=== PATIENT | female | born 1955 | race Caucasian/White ===

== ENCOUNTER 2016-12-25 09:22 | Emergency (ER) | payer BC ==
[~2016-12-25] VITALS: Ht 154.9 cm; Wt 84.0 kg
[2016-12-25 09:31] VITALS: TEMP 36.7; Ht 154.9 cm; Wt 84.0 kg
[2016-12-25] MEDS ORDERED: ASPIRIN 81 MG CHEW PO STA (09:43)
--- NOTE | 2016-12-25 09:47 | EMERGENCY ROOM VISIT NOTE ---
History Report prepared by Harjinder: Elsi Ang Under the Supervision of: Dr. Shayy Carrizales M.D. First contact with patient: 09:30 Chief Complaint: CARDIAC ASSESSMENT Stated Complaint: TIGHTNESS IN CHEST History of Present Illness The patient is a 61 year old female who presents to the Emergency Room with complaints of intermittent left sided chest discomfort that she describes as pinching since last evening. She was at rest watching TV when her pain began. She notes that she has had small tinges of the pain in the past but it has never been this persistent. She notes that her pain is more prominent when she squeezes her left hand. She does not have increased pain with deep breaths. She does note that she has some pain just below her left knee that is intermittent. Denies shortness of breath, leg swelling, or other complaints. Past medical history includes hypertension. She does not have a history of heart disease or blood clots. She had a stress test about 15 years ago. The patient's father at age 53 from heart disease. The patient is not a smoker. She does not take hormone therapy. Denies recent long trips or surgeries. She does not take aspirin. Source of History: patient Onset: last night Position: chest (left) Quality: other (pinching) Timing: intermittent Associated Symptoms: No SOB Note: Other symptoms: left knee pain Review of Systems See HPI for pertinent positives & negatives. A total of 10 systems reviewed and were otherwise negative. Past Medical & Surgical Medical Problems: (1) Hypercholesterolemia (2) Hypertension Family History Heart disease Social History Smoking Status: Never Smoker Marital Status: Occupation Status: employed Current/Historical Medications Scheduled Allopurinol (Zyloprim), Unknown Dose PO DAILY Atorvastatin (Lipitor), Unknown Dose PO DAILY Cholecalciferol (Vitamin D3), Unknown Dose PO DAILY Coenzyme Q10 (Ubidecarenone) (Co Q10), Unknown Dose PO DAILY Indapamide (Lozol), 1.25 MG PO DAILY Allergies Uncoded Allergies: SULFA (Allergy, Unknown, 01/02/05) Physical Exam Vital Signs Date Time Temp Pulse Resp B/P Pulse Ox O2 Delivery O2 Flow Rate FiO2 12/25/16 15:08 100 16 134/80 96 12/25/16 14:43 100 16 134/80 96 Room Air 12/25/16 13:04 78 12/25/16 12:16 74 147/90 12/25/16 11:19 75 16 156/100 96 Room Air 12/25/16 09:32 97 Room Air 12/25/16 09:32 86 12/25/16 09:31 36.7 87 17 162/97 95 Room Air Physical Exam Vital signs reviewed. General: Well-appearing 61 year old female, in no significant distress, obese. HEENT: No scleral icterus, PERRLA, neck supple. Atraumatic. Cardiovascular: Regular rate and rhythm, no extra sounds. Pulmonary: Clear to auscultation bilaterally, normal work of breathing. Abdomen: Soft, nontender, nondistended, positive bowel sounds. Musculoskeletal: Atraumatic, no peripheral edema. Neurologic: Patient awake alert and oriented x 3, full strength in all 4 extremities. Cranial nerves 2 through 12 grossly intact. Skin: Warm, dry, no rash Medical Decision & Procedures ER Provider Diagnostic Interpretation: Radiology results as stated below per my review and radiologist interpretation: CHEST ONE VIEW PORTABLE CLINICAL HISTORY: chest pain dyspnea COMPARISON STUDY: No previous studies for comparison. FINDINGS: The bones soft tissues and hemidiaphragms are normal. The cardiomediastinal silhouette is normal. The lungs are clear. The pulmonary vasculature is normal. IMPRESSION: Negative chest. Electronically signed by: Laith Strong M.D. 12/25/2016 10:05 AM Dictated Date/Time: 12/25/2016 10:05 AM Laboratory Results 12/25/16 09:40 Red Blood Count 4.61, Mean Corpuscular Volume 86.6, Mean Corpuscular Hemoglobin 31.0, Mean Corpuscular Hemoglobin Concent 35.8, Mean Platelet Volume 11.2, Neutrophils (%) (Auto) 74.6, Lymphocytes (%) (Auto) 19.4, Monocytes (%) (Auto) 4.1, Eosinophils (%) (Auto) 1.3, Basophils (%) (Auto) 0.2, Neutrophils # (Auto) 4.05, Lymphocytes # (Auto) 1.05, Monocytes # (Auto) 0.22, Eosinophils # (Auto) 0.07, Basophils # (Auto) 0.01 12/25/16 09:40 Test 12/25/16 09:40 12/25/16 09:51 12/25/16 11:28 White Blood Count 5.42 K/uL (4.8-10.8) Red Blood Count 4.61 M/uL (4.2-5.4) Hemoglobin 14.3 g/dL (12.0-16.0) Hematocrit 39.9 % (37-47) Mean Corpuscular Volume 86.6 fL (80-100) Mean Corpuscular Hemoglobin 31.0 pg (25-34) Mean Corpuscular Hemoglobin Concent 35.8 g/dl (32-36) Platelet Count 199 K/uL (130-400) Mean Platelet Volume 11.2 fL (7.4-10.4) Neutrophils (%) (Auto) 74.6 % Lymphocytes (%) (Auto) 19.4 % Monocytes (%) (Auto) 4.1 % Eosinophils (%) (Auto) 1.3 % Basophils (%) (Auto) 0.2 % Neutrophils # (Auto) 4.05 K/uL (1.4-6.5) Lymphocytes # (Auto) 1.05 K/uL (1.2-3.4) Monocytes # (Auto) 0.22 K/uL (0.11-0.59) Eosinophils # (Auto) 0.07 K/uL (0-0.5) Basophils # (Auto) 0.01 K/uL (0-0.2) RDW Standard Deviation 41.5 fL (36.4-46.3) RDW Coefficient of Variation 13.1 % (11.5-14.5) Immature Granulocyte % (Auto) 0.4 % Immature Granulocyte # (Auto) 0.02 K/uL (0.00-0.02) Prothrombin Time 10.8 SECONDS (9.0-12.0) Prothromb Time International Ratio 1.0 (0.9-1.1) Activated Partial Thromboplast Time 26.1 SECONDS (21.0-31.0) Partial Thromboplastin Ratio 1.0 Anion Gap 12.0 mmol/L (3-11) Est Creatinine Clear Calc Drug Dose 62.0 ml/min Estimated GFR () 75.0 Estimated GFR (Non- 64.7 BUN/Creatinine Ratio 14.0 (10-20) Calcium Level 9.3 mg/dl (8.5-10.1) Magnesium Level 1.7 mg/dl (1.8-2.4) Total Bilirubin 0.6 mg/dl (0.2-1) Direct Bilirubin 0.1 mg/dl (0-0.2) Aspartate Amino Transf (AST/SGOT) 13 U/L (15-37) Alanine Aminotransferase (ALT/SGPT) 29 U/L (12-78) Alkaline Phosphatase 83 U/L (45-117) Total Creatine Kinase 92 U/L (26-192) Creatine Kinase MB 1.5 ng/ml (0.5-3.6) Creatine Kinase MB Ratio 1.6 (0-3.0) Total Protein 7.7 gm/dl (6.4-8.2) Albumin 4.1 gm/dl (3.4-5.0) Bedside D-Dimer 90 ng/mlFEU (0-450) Bedside Troponin I 0.000 ng/ml (0-0.045) Laboratory results per my review. Medications Administered Medications (Trade) Dose Ordered Sig/Anum Route Start Time Stop Time Status Last Admin Dose Admin Aspirin (Aspirin Chew) 324 mg NOW STAT PO 12/25/16 09:43 12/25/16 09:46 DC 12/25/16 09:52 324 MG ECG Indication: chest pain Rate (beats per minute): 85 Rhythm: normal sinus Findings: Q waves (Anterior), no acute ischemic change, no ectopy, other ( subtle ST depression laterally) Comparison ECG Date: 02/08/16 Change: no significant change ED Course 0942: The patient was evaluated in room A9. A complete history and physical examination was performed. 0943: Ordered Aspirin 324 mg PO. 1220: I discussed the case with Dr. Guerrero- [facility] Cards. The patient will have a stress test. 1455: Upon reevaluation, the patient was resting comfortably. She passed her stress test. I discussed findings with the patient. She verbalized agreement of the treatment plan. The patient was discharged home. Medical Decision Chest pain: Acute coronary syndrome, pulmonary embolus, aortic dissection, musculoskeletal pain, pneumonia, pleural effusion, pneumothorax This patient was evaluated and appeared to be in no significant distress. IV access was obtained and laboratory work was drawn. Patient was placed on the [employer] senior [employer] centimeter normal sinus rhythm. She was given 324 mg of aspirin to chew. EKG reveals no evidence of acute ischemia. Laboratory work reveals negative cardiac enzymes 2. Chest x-ray is clear. Case was discussed with cardiology and a stress test was performed. The patient performed well without evidence of ischemia. She will be discharged to follow up with her primary care physician. She will return to the ER for worsening of symptoms or any medical concerns. Consults Time Called: 1214 Consulting Physician: Dr. Guerrero - [facility] Cards Returned Call: 1220 I discussed the case with him. The patient will have a stress test. Impression Primary Impression: Chest pain, non-cardiac Scribe Attestation The scribe's documentation has been prepared under my direction and personally reviewed by me in its entirety. I confirm that the note above accurately reflects all work, treatment, procedures, and medical decision making performed by me. Departure Information Dispostion Home / Self-Care Referrals Arun Zavala M.D. Forms IMPORTANT VISIT INFORMATION Patient Instructions My [facility] Additional Instructions Diagnosis: Chest pain Ibuprofen 600 mg every 6 hours as needed for pain with food. Drink plenty of clear fluids. Follow-up with your doctor this week for reevaluation. Return to the ER for worsening of symptoms or any medical concerns.
[2016-12-25] MEDS ORDERED: CHOL1000 PO (09:52)
[2016-12-25] MEDS ORDERED: ATOR10TA88 PO (09:52)
[2016-12-25] MEDS ORDERED: ALLO100T PO (09:52)
[2016-12-25] MEDS ORDERED: INDA1TAB3 PO (09:52)
[2016-12-25] MEDS ORDERED: COEN1CAP PO (09:52)
--- NOTE | 2016-12-25 10:07 | DIAGNOSTIC IMAGING REPORT ---
CHEST ONE VIEW PORTABLE CLINICAL HISTORY: chest pain dyspnea COMPARISON STUDY: No previous studies for comparison. FINDINGS: The bones soft tissues and hemidiaphragms are normal. The cardiomediastinal silhouette is normal. The lungs are clear. The pulmonary vasculature is normal. IMPRESSION: Negative chest. Electronically signed by: Laith Strong M.D. 12/25/2016 10:05 AM Dictated Date/Time: 12/25/2016 10:05 AM
[2016-12-25 10:43] LABS: BASO % 0.2 %; BASO ABS # 0.01 K/uL (0-0.2); COMPLETE YES; EOS % 1.3 %; HEMATOCRIT 39.9 % (37-47); IG% 0.4 %; LYMPH % 19.4 %; LYMPH ABS # 1.05 K/uL (1.2-3.4); MEAN CELL VOLUME 86.6 fL (80-100); MEAN CORPUSCULAR HGB CONC 35.8 g/dl (32-36); MEAN PLATELET VOLUME 11.2 fL (7.4-10.4); MONO % 4.1 %; NEUT % 74.6 %; PLATELET COUNT 199 K/uL (130-400); RED BLOOD COUNT 4.61 M/uL (4.2-5.4); WHITE BLOOD COUNT 5.42 K/uL (4.8-10.8)
[2016-12-25 10:52] LABS: PROTHROMBIN TIME (PATIENT) 10.8 SECONDS (9.0-12.0)
[2016-12-25 11:03] LABS: CALCIUM 9.3 mg/dl (8.5-10.1); CREATININE 0.96 mg/dl (0.60-1.20); MAGNESIUM 1.7 mg/dl (1.8-2.4); POTASSIUM 3.3 mmol/L (3.5-5.1)
[2016-12-25 11:09] LABS: CKMB/CK RATIO 1.6 (0-3.0)
[2016-12-25 15:08] VITALS: BP 134/80; PULSE 100; O2SAT 96
--- NOTE | 2016-12-25 15:46 | EXERCISE STRESS ECHO ---
*NOTICE TO RECEIVING [employer] This information is strictly Confidential and protected under [place] law. [place] law prohibits you from making any further disclosure of this information unless further disclosure is expressly permitted by the written consent of the person to whom it pertains or is authorized by law. A general authorization for the release of medical or other information is not sufficient for this purpose. Hospital accepts no responsibility if the information is made available to any other person, INCLUDING THE PATIENT. Interpretation Summary * Name: ELIJAH PATIÑO Study Date: 12/25/2016 01:22 PM BP: 132/87 mmHg * Patient Location: [facility] HR: 76 * : 1955 (M/d/yyyy) Gender: Female Height: 61 in * Age: 61 yrs Ethnicity: [place] Weight: 185 lb * Ordering Physician: Shayy Carrizales * Referring Physician: Self, Referred * Performed By: Marie Bryant RCS * * Reason For Study: CHEST PAIN * BSA: 1.8 m2 * Exercise capacity is below average. * This was a normal stress echocardiogram. * -- Conclusions -- * 1. Negative stress echocardiogram for myocardial ischemia at 103% MPHR. * 2. Negative ECG portion of exercise treadmill test. * 3. Appropriate hemodynamic response to exercise. * 4. No exercise induced symptoms. * 5. No ectopy. * 6. Fair exercise tolerance. NYHA Functional Class II. 6 MET workload. Procedure Details * ECHOEX, CPT #38007 Left Ventricle * Resting wall motion: Normal. Stress wall motion: Appropriate increase in Left ventricular systolic function and decrease in cavity size. No stress induced segmental wall motion abnormalities. * The left ventricular ejection fraction increases normally with stress. The left ventricular end-systolic cavity size reduces post-stress (normal response). The left ventricular wall motion with stress is normal. Stress Parameters * Baseline ECG showed sinus rhythm with poor R wave progression. * The stress ECG response was normal * The stress portion of this study was personally supervised by the undersigned interpreting physician. * Rest heart rate was '76' BPM. * Rest blood pressure was '132/87' * Maximum heart rate achieved was 171 bpm. * Maximum heart rate was 106 % of maximum age-predicted heart rate. * Maximum blood pressure was '183/88' * Total exercise time was '05:01' * Maximum exercise MET level achieved was '7.00' METS * Maximum treadmill speed was '2.50' miles per hour. * Maximum treadmill elevation was '12.00'% grade.
== END 2016-12-25 15:08 | disposition home or self-care (01) ==
LOC: C.EDB 09:24 → C.EDA 15:08
DX: R07.89 Other chest pain (principal); I10 Essential (primary) hypertension; E78.00 Pure hypercholesterolemia, unspecified; Z82.49 Family history of ischemic heart disease and other diseases of the circulatory system; Z79.899 Other long term (current) drug therapy

== ENCOUNTER → 2017-03-14 | Outpatient (CLI) | payer BC ==
[~2017-03-14] MED LIST: ALLO100T PO; ATOR10TA82 PO; CHOL1000 PO; COEN1CAP PO; INDA1TAB3 PO
[2017-03-14 10:28] LABS: BASO % 0.3 %; BASO ABS # 0.02 K/uL (0-0.2); COMPLETE YES; EOS % 2.6 %; HEMATOCRIT 41.3 % (37-47); IG% 0.2 %; LYMPH % 21.9 %; LYMPH ABS # 1.27 K/uL (1.2-3.4); MEAN CELL VOLUME 90.2 fL (80-100); MEAN CORPUSCULAR HEMOGLOBIN 31.7 pg (25-34); MEAN CORPUSCULAR HGB CONC 35.1 g/dl (32-36); MONO % 7.9 %; NEUT % 67.1 %; PLATELET COUNT 210 K/uL (130-400); RED BLOOD COUNT 4.58 M/uL (4.2-5.4); WHITE BLOOD COUNT 5.81 K/uL (4.8-10.8)
[2017-03-14 10:38] LABS: ALT/SGPT 30 U/L (12-78); AST/SGOT 17 U/L (15-37); BLOOD UREA NITROGEN 16 mg/dl (7-18); BUN/CREATININE RATIO 18.4 (10-20); CALCIUM 9.5 mg/dl (8.5-10.1); CARBON DIOXIDE 31 mmol/L (21-32); CHLORIDE 106 mmol/L (98-107); CREATININE 0.86 mg/dl (0.60-1.20); GLUCOSE 104 mg/dl (70-99); POTASSIUM 3.6 mmol/L (3.5-5.1); SODIUM 143 mmol/L (136-145)
[2017-03-14 10:41] LABS: CHOLESTEROL 160 mg/dl (0-200); CHOLESTEROL/HDL RATIO 2.9; HDL CHOLESTEROL 56 mg/dl; LDL CHOLESTEROL CALCULATED 72 mg/dl; TRIGLYCERIDES 159 mg/dl (0-150); VERY LOW DENSITY LIPOPROT CALC 32 mg/dl
[2017-03-14 12:39] LABS: ESTIMATED AVERAGE GLUCOSE 111 mg/dl; HA1C FLAG Normal (Normal)
== END | disposition home or self-care (01) ==
LOC: C.LAB 09:08
PROVIDERS: ATTEND Internal Medicine
DX: R21 Rash and other nonspecific skin eruption (principal); E78.00 Pure hypercholesterolemia, unspecified

== ENCOUNTER → 2017-04-18 | Outpatient (CLI) | payer BC ==
--- NOTE | 2017-04-19 09:07 | MAMMOGRAPHY REPORT ---
BILATERAL DIGITAL SCREENING MAMMOGRAM TOMOSYNTHESIS WITH CAD: 04/18/2017 CLINICAL HISTORY: Routine screening. Patient has no complaints. TECHNIQUE: Breast tomosynthesis in addition to standard 2D mammography was performed. Current study was also evaluated with a Computer Aided Detection (CAD) system. COMPARISON: Comparison is made to exams dated: 12/17/2013 mammogram - [facility] an d 09/23/2008. BREAST COMPOSITION: There are scattered areas of fibroglandular density in both breasts. FINDINGS: No suspicious masses, calcifications, or areas of architectural distortion are noted in ei ther breast. There has been no significant interval change compared to prior exams. IMPRESSION: ACR BI-RADS CATEGORY 1: NEGATIVE There is no mammographic evidence of malignancy. A 1 year screening mammogram is recommended. The pa tient will receive written notification of the results. Approximately 10% of breast cancers are not detected with mammography. A negative mammographic report should not delay biopsy if a clinically suggestive mass is present. Linnea Ace M.D. ah/:04/18/2017 16:04:53 Meat Hostess: Nella Pisano, [facility] letter sent: Normal 1/2 BI-RADS Code: ACR BI-RADS Category 1: Negative
== END | disposition home or self-care (01) ==
LOC: C.MAMM 13:14
PROVIDERS: ATTEND Internal Medicine
DX: Z12.31 Encounter for screening mammogram for malignant neoplasm of breast (principal)

== ENCOUNTER → 2017-09-28 | Outpatient (CLI) | payer BC ==
[~2017-09-28] MED LIST changes: +MIDAZOLAM HCL 1 MG/ML 2ML VIAL ONE
--- NOTE | 2017-09-28 12:34 | DIAGNOSTIC IMAGING REPORT ---
CHEST 2 VIEWS ROUTINE HISTORY: 62 years-old Female R05 [id number] acute cough COMPARISON: Chest radiograph 12/25/2016 TECHNIQUE: PA and lateral views of the chest FINDINGS: Cardiac silhouette is mildly enlarged, unchanged. Linear subsegmental left basilar opacities suggest atelectasis or scarring. There is no pneumothorax, pleural effusion or lobar airspace consolidation. The bones of the chest are grossly intact. Mild degenerative changes involve the shoulders and spine. Surgical clips project over the left upper abdomen. IMPRESSION: Linear subsegmental opacities of the lingula suggest atelectasis or scarring. No lobar airspace consolidation to suggest pneumonia. The above report was generated using voice recognition software. It may contain grammatical, syntax or spelling errors. Electronically signed by: Juan Luis Eubanks M.D. 09/28/2017 12:32 PM Dictated Date/Time: 09/28/2017 12:31 PM
== END | disposition home or self-care (01) ==
LOC: C.RAD1850 12:16
PROVIDERS: ATTEND Physician Assistant
DX: R05 Cough (principal); R91.8 Other nonspecific abnormal finding of lung field

== ENCOUNTER → 2018-01-04 | Outpatient (CLI) | payer BC ==
[~2018-01-04] MED LIST changes: -MIDAZOLAM HCL 1 MG/ML 2ML VIAL ONE
[2018-01-04 15:04] LABS: CREATININE RANDOM URINE 28.2 mg/dl
== END | disposition home or self-care (01) ==
LOC: C.LAB1850 12:22
PROVIDERS: ATTEND Internal Medicine
DX: E78.00 Pure hypercholesterolemia, unspecified (principal)